=== PATIENT | female | born 1990 | race Caucasian/White ===

== ENCOUNTER 2019-06-16 10:06 | Outpatient (CLI) | payer BC, SELFPAY ==
[2019-06-16 11:26] LABS: Hematocrit 37.2 % (37.0-47.0)
[2019-06-16 11:40] LABS: Glucose 1 Hour PP 50gm Dose 119 mg/dL
[2019-06-16 12:20] LABS: Vitamin D 25 Hydroxy 48.6 ng/mL
[2019-06-16 12:21] LABS: HIV 1/2 Ab P24 Ag Result Negative (Negative)
== END 2019-06-16 10:07 | disposition home or self-care (01) ==
PROVIDERS: Visit Provider Obstetrics & Gynecology Gynecology
DX: Z34.03 Encounter for supervision of normal first pregnancy, third trimester (principal)
CPT/HCPCS: 36415; 82306; 82947; 85014; 85018; 86703; G0432

== ENCOUNTER 2025-01-02 15:21 | Outpatient (CLI) | payer OTHER, SELFPAY ==
--- OUTSIDE RECORDS SUMMARY | 2025-01-02 15:23 | XMS_ITS | Encounter Summary ---
Author Organization [facility] Address [address] [place] [address] Care Team Providers Care Glove Cutter Name Role Phone Ivy Jacobson DO Primary Care Provider [phone] Encounter Details Date Type Department Care Team (Late st Contact Info) Description 02/22/2022 MyCCyPhy Workst Message Enc [facility] Family Medicine - [place] [address], [address] [place] [phone] Ivy Jacobson DO [address] [place] [address] Topamax Social History Tobacco Use Types Packs/Day Years Used Date Smoking Tobacco: Never Smokeless Tobacco: Never Alcohol Use Standard Drinks/Week Comments Not Currently 0 (1 standard drink = 0.6 oz pur e alcohol) PHQ-2 Answer Date Recorded PHQ-2 Score - If the patient scores above 3, please move on to questions 3-9 0 01/27/2022 Comments No Sex and Gender Information Value Date Recorded Sex Assigned at Not on file Legal Sex Female 8:23 AM CDT Gender Identity Not on file Sexual Orientation Not on file COVID-19 Exposure Response Date Recorded In the last 10 days, have yo u been in contact with someone who was confirmed or suspected to have Coronavirus/COVID-19? No / Unsure 02/22/2022 11:36 AM CDT documented as of this encounter Functional Status * RETIRED Are you deaf or do you have serious difficulty hearing Answer Date of Assessment Author Status No 09/11/2019 10:36 PM CDT Acti ve * RETIRED Are you blind or do you have serious difficulty seeing, even when wearing glasses? Answer Date of Assessment Author Status No 09/11/2019 10:36 PM CDT Acti ve * Do you have serious difficulty walking or climbing stairs? Answer Date of Assessment Author Status No 09/11/2019 10:36 PM GAMAT Jacque Peralta RN Active * Do you have difficulty dressing or bathing? Answer Date of Assessment Author Status No 09/11/2019 10:36 PM CDT Jacque Peralta RN Active * Because of a physical, mental, or emotional condition, do you have difficulty doing errands alone such as visiting a doctor's office or shopping? Answer Date of Assessment Author Status No 09/11/2019 10:36 PM GAMAT Jacque Peralta RN Active documented as of this encounter Mental Status * Because of a physical, mental, or emotional condition, do you have serious difficulty concentrating, remembering, or making decisions? Answer Entry Date Author Status No 09/11/2019 10:36 PM CDT Jacque Peralta RN Active documented in this encounter Plan of Treatment Not on file documented as of this encounter Visit Diagnoses Not on filedocumented in this encounter Additional Health Concerns Infection Onset Date Last Indicated Resolved Time COVID-19 Rule Out 03/31/2023 03/31/2023 03/31/2023 10:54 AM CDT COVID-19 Rule Out 03/31/2023 03/31/2023 04/01/2023 3:17 PM CDT COVID-19 Rule Out 05/03/2023 05/03/2023 05/03/2023 1:07 PM BROADCAST OPERATIONS DIRECTOR COVID-19 Rule Out 05/03/2023 05/03/2023 05/04/2023 10:50 PM BROADCAST OPERATIONS DIRECTOR COVID-19 Rule Out 06/02/2023 06/02/2023 06/02/2023 12:07 PM BROADCAST OPERATIONS DIRECTOR COVID-19 Confirmed 06/02/2023 06/02/2023 12:33 AM BROADCAST OPERATIONS DIRECTOR Assessment Noted Time PHQ-9 Depression Total Score: 13 021 2:48 PM CDT documented as of this encounter Care Teams Glove Cutter Relationship Specialty Start Date End Date Kavon, Ivy, DO [address] [place] [address] [id number] PCP - General FAMILY PRACTICE 04/22/20 documented as of this encounter
--- OUTSIDE RECORDS SUMMARY | 2025-01-02 15:23 | XMS_ITS | Clinical Summary ---
Author Organization [facility] Address [address] [place] [address] Care Team Providers Care Cleaning Manager Name Role Phone Ivy Jacobson DO Primary Care Provider [phone] Allergies No known active allergies Medications escitalopram (LEXAPRO) 20 MG tabletIndication s:MARCIAL (generalized anxiety disorder) Take 1 tablet (20 mg total) by mouth daily. 90 tablet 1 3 Active buPROPion XL (WELLBUTRIN XL) 300 MG 24 hr tabletIndication s:MARCIAL (generalized anxiety disorder) Take 1 tablet (300 mg total) by mouth daily. 90 tablet 1 3 Active rizatriptan (MAXALT) 10 MG tabletIndication s:Migraine with aura and without status migrainosus, not intractable Dissolvable prefers one tablet every 12 hours 30 tablet 2 3 Active Active Problems Problem Noted Date Diagnosed Date Stress at work 01/08/2023 Nausea and vomiting in ([facility]) 08/27 uterine contractions in third trimester, antepartum ([facility]) 08/27/2021 Overview (06/21/2022): 08/27/2021 (Maximiliano): Differential Diagnosis or Management Options: at 28w2d here for nausea/vomiting and contractions PLAN: Discussed case with Dr Lopez. FFN neg, but with persistent contractions and early gestational age, will admit for observation. She will call RN with orders ED Course as of 08/27/21211 Time: 08/27 205 Comment: FFN neg, No change in cervical exam, but patient still very nauseated, procardia hasnt helped contractions and 800cc IVF has not helped either. UA suggestive of dehydration, and CMP wnl. By: Inna Viera MD Time: 08/27 210 Comment: Discussed case with Dr Lopez. Will admit, continue IVF and she will call with further orders. By: Inna Viera MD 08/27/2021, 1930 (SK): The patient was started on magnesium sulfate, and started on nifedipine 10 mg p.o. q.6 hours. Patient states she has only felt 3 obvious contractions throughout the day FHT AGA Int os 1? (mucus plug)/long/high - stable Second dose of betamethasone due at 03:00 Discontinue magnesium sulfate and IV fluids Continue nifedipine 10 mg p.o. q.6 hours If stable overnight, can discharge home tomorrow on nifedipine 08/28/2021, (BD): ctxs have resolved - reports none overnight and none detected on TOCO this AM Cervix has been unchanged since admission - 07/02/-3 S/p betamethasone S/p mag On nifedipine 10 mg p.o. q.6 hours - plan to continue at discharge Patient main concern in upper back and chest muscle aches from chronic cough s/p COVID - managed well inpatient with flexuril - will plan to also continue PRN on discharge with referral to chiropractic and message therapy Plan for home this AM with strict PTL precautions COVID-19 virus infection 07/02/2021 History of COVID-19 04/13/2021 Overview (06/21/2022): 06/01/2020 History of depression 04/13/2021 Epigastric pain 07/25/2020 MARCIAL (generalized anxiety disorder) 04/22/2020 Migraine with aura and witho ut status migrainosus, not intractable 04/22/2020 Resolved Problems Problem Noted Date Diagnosed Date Resolved Date Right upper quadrant abdominal pain 07/25/2020 07/01/2021 Weight gain 04/22/2020 12/02/2021 Post depression 02/25/202012/02 ([facility]) 09/11/2019 09/15/19 20 Immunizations Immunization Administration Dates Next Due Fluzone 6 Months+ Quad (0.5 mL Prefilled Syringe ) 04/22/2020 Tdap (Generic) 08/26/2021 Social History Tobacco Use Types Packs/Day Years Used Date Smoking Tobacco: Never Passive Smoke Exposure: Never Smokeless Tobacco: Never Tobacco Cessation:Counseling Given: No Alcohol Use Standard Drinks/Week Comments Yes 0 (1 standard drink = 0.6 oz pur e alcohol) OCC PHQ-2 Answer Date Recorded Patient Health Questionnaire-2 Score 2 07/22/2022 Comments No Sex and Gender Information Value Date Recorded Sex Assigned at Not on file Legal Sex Female 8:23 AM CDT Gender Identity Not on file Sexual Orientation Not on file Last Filed Vital Signs Vital Sign Reading Time Taken Comments Blood Pressure 112/80 06/02/2023 11:43 AM DOUGHNUT GLAZIER Pulse 68 06/02/2023 11:43 AM DOUGHNUT GLAZIER Temperature 36.4 C (97.5 F) 06/02/2023 11:43 AM DOUGHNUT GLAZIER Respiratory Rate 16 01/19/2023 9:03 AM CDT Oxygen Saturation 98% 06/02/2023 11:43 AM DOUGHNUT GLAZIER Inhaled Oxygen Concentration - - Weight 89.8 kg (198 lb) 06/02/2023 11:43 AM DOUGHNUT GLAZIER Height 167.6 cm (5' 6) 01/19/2023 9:03 AM CDT Body Mass Index 31.96 01/19/2023 9:03 AM CDT Plan of Treatment Health Maintenance Due Date Last Done Comments Annual Physical 1993 Hepatitis C 02/04/2008 Hepatitis B Vaccines (1 of 3 - 19+ 3-dose series) 2009 HPV Vaccines (1 - 3-dose SCD M series) 2017 COVID-19 Vaccine (2023-2 5 season) 2024 Cervical Cancer Screening Pa p Smear (Age 30 to 64) Every 3 Years 04/13/2024 04/13/2021, 04/13/2021 PHQ-2 (Physician Grants) 06/13/2024 Cervical Cancer Screening Pa p with HPV Testing (Age 30 to 64) Every 5 Years 04/13/2026 04/13/2021, 04/13/2021 Cervical Cancer Screening wi th HPV 04/13/2026 DTaP, Tdap and Td Vaccines ( 2 - Td or Tdap) 08/27/2031 08/26/2021 Meningococcal B Vaccine Aged Out No l onger eligible based on patient's age to complete this topic Meningococcal Vaccine Aged Out No glenny keshawn eligible based on patient's age to complete this topic Pneumococcal Vaccine: Pediatrics (0 to 5 Years) and At-Risk Patients (6 to 49 Years) Aged Out No longer eligible b ased on patient's age to complete this topic RSV Immunizations Under 20 Months Aged Out No longer eligible b ased on patient's age to complete this topic Procedures Procedure Name Priority Date/Time Associated Diagnosis Comments OUTSIDE CYTOPATH CERV/VAG IN TERPRET (PAP) Routine 04/13/2021 from Last 3 Months or Most Recently Relevant to Health Maintenance Results * PAP SMEAR WITH HPV (04/13/2021) 04/13/2021 us Documents Scanned SCANNING Final Result [facility] from Last 3 Months or Most Recently Relevant to Health Maintenance Insurance [facility] Advance Directives * Full Code (Latest Code Status on File) Date Activated Date Inactivated Comments 09/12/2019 11:01 PM 09/15/2019 4:22 PM * Full Code Date Activated Date Inactivated Comments 09/11/2019 9:50 PM 09/12/2019 9:26 PM Care Teams Cleaning Manager Relationship Specialty Start Date End Date Ivy Jacobson DO [address] [place] [id number] PCP - General FAMILY PRACTICE 04/22/20
--- OUTSIDE RECORDS SUMMARY | 2025-01-02 15:23 | XMS_ITS | Encounter Summary ---
Author Organization [facility] Address [address] [place] [address] Care Team Providers Care Cloth Folder Machine Name Role Phone Ivy Jacobson DO Primary Care Provider [phone] Encounter Details Date Type Department Care Team (Late st Contact Info) Description 05/19/2023 Incentivyzet Message Enc [facility] Family Medicine - [place] [address], [address] [place] [phone] Ivy Jacobson DO [address] [place], [place] [id number] Bupropion Social History Tobacco Use Types Packs/Day Years Used Date Smoking Tobacco: Never Passive Smoke Exposure: Never Smokeless Tobacco: Never Alcohol Use Standard Drinks/Week Comments Yes 0 (1 standard drink = 0.6 oz pur e alcohol) OCC PHQ-2 Answer Date Recorded Patient Health Questionnaire-2 Score 2 07/22/2022 Comments No Sex and Gender Information Value Date Recorded Sex Assigned at Not on file Legal Sex Female 8:23 AM CDT Gender Identity Not on file Sexual Orientation Not on file documented as of this encounter Functional Status [...] Assessment Author Status No 09/11/2019 10:36 PM Jacque Torres RN Active * Do you have difficulty dressing or bathing? Answer Date of Assessment Author Status No 09/11/2019 10:36 PM Jacque Torres RN Active * Because of a physical, mental, or emotional condition, do you have difficulty doing errands alone such as visiting a doctor's office or shopping? Answer Date of Assessment Author Status No 09/11/2019 10:36 PM Jacque Torres RN Active documented as of this encounter Mental Status * Because of a physical, mental, or emotional condition, do you have serious difficulty concentrating, remembering, or making decisions? Answer Entry Date Author Status No 09/11/2019 10:36 PM Jacque Torres RN Active documented in this encounter Plan of Treatment Not on file documented as of this encounter Visit Diagnoses Not on filedocumented in this encounter Additional Health Concerns Infection Onset Date Last Indicated Resolved Time COVID-19 Rule Out 06/02/2023 06/02/2023 06/02/2023 12:07 PM DRUM WORKER COVID-19 Confirmed 06/02/2023 06/02/2023 12:33 AM DRUM WORKER Assessment Noted Time PHQ-9 Depression Total Score: 13 023 2:35 PM DRUM WORKER documented as of this encounter Care Teams Cloth Folder Machine Relationship Specialty [place] [address] [place] [id number] PCP - General FAMILY PRACTICE 04/22/20 documented as of this encounter
--- OUTSIDE RECORDS SUMMARY | 2025-01-02 15:24 | XMS_ITS | Clinical Summary ---
Author Organization [facility] Address [address] [place] [address] Care Team Providers Care Imaging Nurse Name Role Phone Rashmi Bajwa MD Unavailable [phone] Source Comments [facility],non-owned Affiliates and Associated Physician Practices is amultiple site organization consisting of ambulatory clinics and hospital sitesin [place], [place], [place] and [place]. This disclosure is being madepursuant to the Care Everywhere program and may not contain all information available regarding this patient. Last updated 18.[facility] Allergies No known active allergies Medications * Be aware that medications may not be up to date on this document. Alwaysverify current medications with the patient. promethazine (PHENERGAN) 25 MG tablet Take 1 Tab by mouth every 6 hours as needed for Nausea/Vomi ting. 10 Tab 0 06/02/2014 Active ondansetron (ZOFRAN) 4 MG tablet Take 1 Tab by mouth every 4 hours as needed for Nausea/Vomi ting. 10 Tab 0 06/02/2014 Active Social History Tobacco Use Types Packs/Day Years Used Date Smoking Tobacco: Never Alcohol Use Standard Drinks/Week Comments Yes 0 (1 standard drink = 0.6 oz pur e alcohol) social Comments Unknown Sex and Gender Information Value Date Recorded Sex Assigned at Not on file Legal Sex Female 5:35 AM CIRCULATION SUPERVISOR Gender Identity Not on file Sexual Orientation Not on file Last Filed Vital Signs Vital Sign Reading Time Taken Comments Blood Pressure 109/68 06/02/2014 8:10 PM CIRCULATION SUPERVISOR Pulse 92 06/02/2014 8:10 PM CIRCULATION SUPERVISOR Temperature 37.2 C (99 F) 06/02/2014 2:14 PM CIRCULATION SUPERVISOR Respiratory Rate 16 06/02/2014 8:10 PM CIRCULATION SUPERVISOR Oxygen Saturation 100% 06/02/2014 8:10 PM CIRCULATION SUPERVISOR Inhaled Oxygen Concentration - - Weight 63.5 kg (140 lb) 06/02/2014 2:12 PM CIRCULATION SUPERVISOR Height 167.6 cm (5' 6) 06/02/2014 2:12 PM CIRCULATION SUPERVISOR Body Mass Index 22.6 06/02/2014 2:12 PM CIRCULATION SUPERVISOR Plan of Treatment Health Maintenance Due Date Last Done Comments HIV SCREENING 2005 HEPATITIS C SCREENING 01/30/2008 DTAP/TDAP/TD VACCINES (1 - Tdap) 2009 HEPATITIS B VACCINE (1 of 3 - 19+ 3-dose series) 2009 HPV VACCINE (1 - 3-dose SCDM series) 2017 COVID-19 VACCINE (1 - 2023-2 5 season) 2024 DEPRESSION SCREENING 06/13/2024 INFLUENZA VACCINE (#1) 2025 ZOSTER VACCINE (1 of 2) 02/04/2040 HIB VACCINE Aged Out No longer eligi ble based on patient's age to complete this topic MENINGOCOCCAL (Group B) VACC INE SHARED DECISION-MAKING Aged Out No longer eligibl e based on patient's age to complete this topic MENINGOCOCCAL GROUPS A/C/Y/W VACCINE Aged Out No longer eligible b ased on patient's age to complete this topic PNEUMOCOCCAL VACCINE Aged Out No long er eligible based on patient's age to complete this topic [place] [address] [place] [address] CARE [place] [address] [place] [address] Care Teams Imaging Nurse Relationship Specialty Start Date End Date Rashmi Bajwa MD Orthopedic Surgery 08/08/12
--- OUTSIDE RECORDS SUMMARY | 2025-01-02 15:24 | XMS_ITS | Clinical Summary ---
Author Organization [facility] Address [address] [place] [address] Care Team Providers Care Saw Offbearer Name Role Phone Ivy Jacobson DO Primary Care Provider [phone] Og Calderon MD Unavailable [phone] Allergies Active Allergy Reactions Criticality Noted Date Comments Sulfa (Sulfonamide Antibiotics) Stomach upset Low 05/28/2014 Stomach/GI Upset Medications escitalopram (LEXAPRO) 20 mg tabletIndicatio ns:Post depression TAKE 1 TABLET(20 MG) BY MOUTH DAILY 30 tablet 1 2 Active buPROPion XL (WELLBUTRIN XL) 300 mg 24 hr tablet Take 1 tablet (300 mg total) by mouth daily Active rizatriptan (MAXALT) 10 mg tablet Take 1 tablet (10 mg total) by mouth daily as needed 3 Active triamcinolone (KENALOG) 0.1 % ointment APPLY SPARINGLY TOPICALLY TO THE AFFECTED AREA TWICE DAILY 4 Active acetaminophen (TylenoL) 325 mg tablet Take 2 tablets (650 mg total) by mouth every 6 (six) hours as needed for pain 30 tablet 5 Active ibuprofen (ADVIL,MOTRIN) 600 mg tablet Take 1 tablet (600 mg total) by mouth every 6 (six) hours as needed for pain 30 tablet 5 Active Active Problems Problem Noted Date Diagnosed Date Abnormal uterine bleeding 05/31/2024 Endometrial polyp 05/30/2024 Menorrhagia with regular cycle 05/30/2024 Abnormal uterine bleeding (AUB) 04/11/2024 Anxiety and depression 04/13/2021 History of depression 04/13/2021 History of section 04/13/2021 Overview (11/08/2021): G1 progressed to complete dilation, pushed for 3 hours, failed vacuum. Previously counseled by Dr. Gonzalez (07/14) Planning repeat CS, scheduled for 11/05 at 39wks with tubal ligation 11/05/2021 (SK): The general risks of surgery were reviewed, including infection, hemorrhage requiring blood transfusion or additional emergency procedures, injury to surrounding organs, and complications related to anesthesia (which will be reviewed with the patient by the anesthesia service). The patient had the opportunity to ask questions and have them answered by me. To the best of my knowledge the patient expressed understanding and consented to undergo repeat low-transverse section. History of COVID-19 04/13/2021 Overview (04/13/2021): 06/01/2020 Resolved Problems Problem Noted Date Diagnosed Date Resolved Date S/P repeat low transverse 11/05/2021 04/11/2024 Overview (11/08/2021): 11/06/21, POD#1 (SO): O+, rubella immune Hgb 9.8 VSS Is ambulating, and voiding without difficulty Baby is NICU Is pumping breasts until baby can go to breast Continue routine PP care 11/07/2021 (SK): Baby remains in NICU, but plan is to come out to room today and hopefully discharge tomorrow Pumping, working on latch, and supplementing with formula Ambulating, voiding, tolerating regular diet, pain controlled VSS WNL Exam deferred due to patient holding baby in NICU and has binder in place Continue routine post care 11/08/2021 (SK): Baby is in the room with mother, and good for discharge today Continues to work on Ambulating, voiding, tolerating regular diet, pain controlled Single mildly elevated blood pressure Normal exam Stable for discharge Routine discharge precautions Follow-up 1 week postop for incision and blood pressure check Admission for sterilization 11/05/2021 11/08/2021 Overview (11/08/2021): 11/05/2021 (EMMA): The patient previously expressed desire for permanent sterilization, and consents were signed in the office. The patient reiterates that desire today. The options for tubal sterilization at the time of section were reviewed, including partial or total salpingectomy. The patient was informed that there is a roughly 10-15% reduction in lifetime risk of ovarian cancer with with any tubal sterilization procedure, due to cutting off the pathway for external irritants to enter the pelvis, and that the reduction in risk is even greater with total salpingectomy, due to the fact that a portion of what is diagnosed as ovarian cancer actually starts in the fallopian tube. The procedure was described. Failure rates were reviewed. The possibility of regret in the future was addressed. It was pointed out that while reversal procedures are available following partial salpingectomy, sterilization procedures are meant to be permanent. The patient had a chance to ask questions and have them answered by me. To the best my knowledge the patient expressed understanding and consents to undergo bilateral salpingectomy for sterilization. uterine contractions in third trimester, antepartum 08/27/2021 04/11/2024 Overview (08/28/2021): 08/27/2021 (Maximiliano): Differential Diagnosis or Management Options: at 28w2d here for nausea/vomiting and contractions PLAN: Discussed case with Dr Lopez. FFN neg, but with persistent contractions and early gestational age, will admit for observation. She will call RN with orders ED Course as of 08/27/21211 Time: 08/27 020 Comment: FFN neg, No change in cervical [...] home this AM with strict PTL precautions Nausea and vomiting in 08/27/2021 04/11/2024 COVID-19 07/02/2021 04/11/2024 Encounter for supervision of normal , antepartum 04/13/2021 11/08/2021 Overview (11/08/2021): Supervision of Datinwk US Labs: O+/I/-/-,NR Genetics:Panorama - LR Anatomy: Complete, EFW 71% nml GCT: 08/26 Tdap: 08/26 GBS: neg 3rd Trimester CBC/HIV/RPR: completed Delivery Planning: Repeat CS scheduled for 39wks on 11/05 Pt has decided to have a tubal ligation and considering IUD for menstrual control . Consent form signed Anxiety/depression Stable on Lexapro and atarax PRN COVID 19 Positive 07/02 SP ASA Obesity/LGA Patient counseled on well balanced diet and regular activity Advised of goal weight gain 11-20lbs, (33lbs gain todate) Early Glucose screening - passed 98 EFW (34w6d) 82.5% AC 97% Post depression 02/25/202004/13 Immunizations Immunization Administration Dates Next Due Tdap 08/26/2021 Surgical History Surgery Date Site/Laterality Comments SECTION, LOW TRANSVERSE 09/12/2019 SINUS SURGERY ESOPHAGOGASTRODUODENOSCOPY SKIN CANCER EXCISION CYST REMOVAL 06/13/2010 - 06/12/2011 Medical History Medical History Date Comments No known health problems Depression Anxiety Headache migraines Gall bladder disease possible?? having some GI sx/had some testing/no surgery indicated Family History Medical History Relation Name Comments No Known Problems Father Hypertension Mother Breast cancer Neg Hx Ovarian cancer Neg Hx Uterine cancer Neg Hx Relation Name Status Comments Father Alive Mother Alive Social History Tobacco Use Types Packs/Day Years Used Date Smoking Tobacco: Never Alcohol Use Standard Drinks/Week Comments Yes 0 (1 standard drink = 0.6 oz pur e alcohol) AUDIT-C Answer Date Recorded Q1: How often do you have a drink containing alc ohol? 2-4 times a month 06/18/2024 Q2: How many drinks containi ng alcohol do you have on a typical day when you are drinking? 1 or 2 06/18/2024 Q3: How often do you have si x or more drinks on one occasion? Never 06/18/2024 [place] Depression Scale Answer Date Recorded [place] Depression Scale Total 3 12/22/2021 The thought of harming myself has occurred to me . Never 12/22/2021 Personal Safety Answer Date Recorded Have you ever been in or are you currently in a harmful physical or emotional relationship or is someone making you feel afraid or unsafe? Denies 06/18/2024 Comments No Sex and Gender Information Value Date Recorded Sex Assigned at Not on file Legal Sex Female 8:57 PM FOLDER OPERATOR Gender Identity Female 06/08/2024 6:31 PM FOLDER OPERATOR Sexual Orientation Not on file Obstetrics History Para Term AB IAB SAB Ectopic Multiple Livin g Live Births 3 2 2 1 1 0 2 2 Date Outcome GA Total Labor Labor/2nd/3rd Weight Sex Type Anes PTL Dianelys A1 A5 Name Clin 2019 Term 39w 2d 10h 37m 6h 20m/4h 15m/0h 02m 3.402 kg (7 lb 8 oz) F CS-LT ranv Epidur al N Livin g 8 9 PANKAJ R,GIRL ALF Reece en Rhoda rangel Nemesio in Complications:Failure to Pro sloan in Second Stage, Intolerance Delivery Location:[facility] SAB 2021 Term 39w 1d 0h 03m 0h 03m 3.81 kg (8 lb 6.4 oz) M CS-LT ranv Spinal N Livin g 6 7 HORTENCIA DE LA GARZA, Adam Stringer MD Complications:None Delivery Location:[facility] ([facility] L AND D PROCEDURE) Last Filed Vital Signs Vital Sign Reading Time Taken Comments Blood Pressure 130/84 06/18/2024 11:35 AM FOLDER OPERATOR Pulse 88 06/18/2024 11:35 AM FOLDER OPERATOR Temperature 37 C (98.6 F) 06/18/2024 11:05 AM FOLDER OPERATOR Respiratory Rate 16 06/18/2024 11:35 AM FOLDER OPERATOR Oxygen Saturation 98% 06/18/2024 11:35 AM FOLDER OPERATOR Inhaled Oxygen Concentration - - Weight 90 kg (198 lb 8 oz) 06/18/2024 7:05 AM CS T Height 167.6 cm (5' 6) 06/18/2024 7:05 AM FOLDER OPERATOR Body Mass Index 32.04 06/18/2024 7:05 AM FOLDER OPERATOR Plan of Treatment Health Maintenance Due Date Last Done Comments Varicella Vaccines (1 of 2 - 13+ 2-dose series) 2003 Hepatitis B Screening 02/04/2008 Cervical Cancer Screening 04/13/2022 04/13/2021 Depression Screening 12/22/2022 12/22/2021 Influenza Vaccine (#1) 2025 , 05/02/2013 Regular Well Visit/Exam 18-64 04/11/2025 04/11/2024 DTaP/Tdap/Td Vaccine (4 - Td or Tdap) 08/27/2031 08/26/2021, 06/13/2008, 06/13/2004 Hepatitis C Screening Completed 03/26/2021 HPV Vaccines Aged Out No longer eligi ble based on patient's age to complete this topic Pneumococcal vaccine <65 Aged Out No longer eligible based on patient's age to complete this topic Procedures Procedure Name Priority Date/Time Associated Diagnosis Comments THINPREP PAP WITH HPV Routine 04/13/2021 11:01 AM CDT HEPATITIS C ANTIBODY Routine 03/26/2021 11:02 AM CDT Positive blood test from Last 3 Months or Most Recently Relevant to Health Maintenance Results * ThinPrep Pap with HPV (04/13/2021 11:01 AM CDT) Pap test 04/13/2021 11:0 1 AM CDT 04/14/2021 11:01 AM CDT Narrative 04/17/2021 10:16 AM CDT [facility] Department of Pathology [address] [place] [address] Final Report with Addendum Note to Patients: This report may contain a detailed description of human tissue sent by a health care provider to the laboratory for pathologic evaluation. The content of this report is essential for diagnosis and may provide important critical findings. This information may be unfamiliar to patients to review without a medical professional present. It is advised that the patient review this report in the presence of a health care provider who can answer questions and explain the details. Patient Name: ALF CHAUHAN Address: [address] [place] [address] Gender: F : 1990 (Age: 31) Service: Laboratory Location: [facility] #: [id number] Patient Type: [facility] SPECIMEN Taken: 04/13/2021 Received: 04/14/2021 Accessioned:: 04/15/2021 Reported: 04/17/2021 Physician(s): Dr. Nomi Raymond M.D. [facility] Diagnosis: Source of Specimen: Imaged Thinprep Pap Test plus HPV - Analytical Laboratory Technician Cytologic Material Specimen Adequacy: - Satisfactory for evaluation; endocervical/transformation zone component present General Category: - Negative for intraepithelial lesion or malignancy Interpretation/Results: - Numerous inflammatory cells present NUBIA Meeks(ASCP) Report Electronically Reviewed and Signed Out By TONYA MeeksASCP) 04/17/2021 10:16:02 Addenda: HPV Test Interpretation NEGATIVE for types 16, 18, 31, 33, 35, 39, 45, 51, 52, 56, 58, 59, 66 and 68. Test performed utilizing Gen-Probe Aptima assay. NUBIA Madrigal(ASCP) Report Electronically Reviewed and Signed Out By TONYA MadrigalASCP) 04/15/2021 15:12:32 Specimen(s) Received: A: Imaged Thinprep Pap Test plus HPV - Analytical Laboratory Technician Cytologic Material Clinical History: The Pap test is a screening test used to aid in the detection of cervical cancer and its precursors. It should not be the sole means by which malignant and premalignant lesions are diagnosed. Both false negative and false positive results may occur. It also has poor sensitivity for the detection of endometrial lesions and should not be used to evaluate suspected endometrial abnormalities. For these reasons it is most important to obtain Pap tests at regular intervals. The performance characteristics of some immunohistochemical stains, fluorescence in-situ hybridization tests and immunophenotyping by flow cytometry cited in this report (if any) were determined by the Surgical Pathology Department at [facility] as part of an ongoing advanced quality engineer program and in compliance with federally mandated regulations drawn from the Clinical Laboratory Improvement Act of 1988 (CLIA '88). Some of these tests rely on the use of analyte specific reagents and are subject to specific labeling requirements by the US Food and Drug Administration. Such diagnostic tests may only be performed in a facility that is certified by the Department of Health and Human Services as a high complexity laboratory under CLIA '88. The FDA has determined that such clearance or approval is not necessary. This test is used for clinical purposes. It should not be regarded as investigational or for research. Nevertheless, federal rules concerning the medical use of analyte specific reagents require that the following disclaimer be attached to the report: This test was developed and its performance characteristics determined by the Surgical Pathology Department [facility]. It has not been cleared or approved by the U. S. Food and Drug Administration. us Nomi Raymond MD LAB CYTOLOGY ORDERABLES Fi nal Result * Hepatitis C antibody (03/26/2021 11:02 AM CDT) Hep C Ab Nonreactive Nonreactive FRANK POWELL Comment: Interpretive Data Nonreactive: Antibodies to HCV not detected. Does NOT exclude the possibility of recent exposure to HCV. Equivocal: Equivocal for HCV antibodies. Supplemental molecular testing will be automatically performed to determine infection status in accordance with current CDC screening recommendations. Reactive: Positive for HCV antibodies. This may represent current or past HCV infection. Supplemental molecular testing will be automatically performed to determine current infection status in accordance with current CDC screening recommendations. Interpretive data was last revised on 2019. Blood 03/26/2021 11:0 2 AM CDT 03/26/2021 12:33 PM CDT Adam Gonzalez MD LAB MICROBIOLOGY - GENERAL ORDERABLES Final Result Performing Organization Address City/State/[facility] Co de Phone Number FRANK [address] [facility] [place] [address] from Last 3 Months or Most Recently Relevant to Health Maintenance Insurance CHOICE PLUS [facility] CHOICE PLUS [facility] CHOICE PLUS Advance Directives For more information, please contact: [phone] * Full Code (Latest Code Status on File) Date Activated Date Inactivated Comments 11/05/2021 9:07 AM 11/08/2021 10:01 PM * Full Code Date Activated Date Inactivated Comments 11/05/2021 5:42 AM 11/05/2021 9:07 AM Full CPR in case of cardiopulmonary arrest * Full Code Date Activated Date Inactivated Comments 08/27/2021 2:31 AM 08/28/2021 2:21 PM Full CPR in case of cardiopulmonary arrest Care Teams Saw Offbearer Relationship Specialty Start Date End Date Ivy Jacobson DO [address] [facility] [address] [place] [address] PCP - General Family Medicine 11/05/21 Og Calderon MD [address] [phone] Consulting Physician Obstetrics and Gynecology 06/18/24
--- OUTSIDE RECORDS SUMMARY | 2025-01-02 15:24 | XMS_ITS | Encounter Summary ---
Author Organization [facility] Address [address] [place] [address] Care Team Providers Care Parts Room Assistant Name Role Phone Ivy Jacobson DO Primary Care Provider [phone] Encounter Details Date Type Department Care Team (Late st Contact Info) Description 05/02/2023 Innovative Biosensorst Message Enc [facility] Family Medicine - [place] [address] [facility], [address] [place] [phone] Ivy Jacobson DO [address] [place], [place] [phone] Sick Social History Tobacco Use Types Packs/Day Years [...] Last Indicated Resolved Time COVID-19 Rule Out 05/03/2023 05/03/2023 05/03/2023 1:07 PM MEMBER CERTIFICATION MANAGER COVID-19 Rule Out 05/03/2023 05/03/2023 05/04/2023 10:50 PM MEMBER CERTIFICATION MANAGER COVID-19 Rule Out 06/02/2023 06/02/2023 06/02/2023 12:07 PM MEMBER CERTIFICATION MANAGER COVID-19 Confirmed 06/02/2023 06/02/2023 12:33 AM MEMBER CERTIFICATION MANAGER Assessment Noted Time PHQ-9 Depression Total Score: 13 023 2:35 PM MEMBER CERTIFICATION MANAGER documented as of this encounter Care Teams Parts Room Assistant Relationship Specialty Start Date End Date Ivy Jacobson DO [address] [place] [address] PCP - General FAMILY PRACTICE 04/22/20 documented as of this encounter
--- OUTSIDE RECORDS SUMMARY | 2025-01-02 15:24 | XMS_ITS | Encounter Summary ---
Author Organization [facility] Address [address] [place] [address] Care Team Providers Care Wheel Shop Supervisor Name Role Phone Ivy Jacobson DO Primary Care Provider [phone] Encounter Details Date Type Department Care Team (Late st Contact Info) Description 01/13/2023 [email or web address] Message Enc [facility] Family Medicine - [place] [address] [facility], [address] [place] [phone] Ivy Jacobson DO [address] [place], [place] [phone] Bupropion Social History Tobacco Use Types Packs/Day [...] Rule Out 05/03/2023 05/03/2023 05/03/2023 1:07 PM SKIN CARE INSTRUCTOR COVID-19 Rule Out 05/03/2023 05/03/2023 05/04/2023 10:50 PM SKIN CARE INSTRUCTOR COVID-19 Rule Out 06/02/2023 06/02/2023 06/02/2023 12:07 PM SKIN CARE INSTRUCTOR COVID-19 Confirmed 06/02/2023 06/02/2023 12:33 AM SKIN CARE INSTRUCTOR Assessment Noted Time PHQ-9 Depression Total Score: 13 023 2:35 PM SKIN CARE INSTRUCTOR documented as of this encounter Care Teams Wheel Shop Supervisor Relationship Specialty Start Date End Date Ivy Jacobson DO [address] [place] [id number] PCP - General FAMILY PRACTICE 04/22/20 documented as of this encounter
--- OUTSIDE RECORDS SUMMARY | 2025-01-02 15:24 | XMS_ITS | Encounter Summary ---
Author Organization [facility] Address [address] [place] [address] Care Team Providers Care Ceo & Co Founder Name Role Phone Ivy Jacobson Primary Care Provider [phone] Encounter Details Date Type Department Care Team (Late st Contact Info) Description 12/08/2022 [facility] Message Enc [facility] Family Medicine - [place] [address] [facility], [address] [place] [phone] [place] MD, [facility] Provider [employer] Social History Tobacco Use Types Packs/Day Years [...] PM CDT Jacque Peralta RN Active * Do you [...] Rule Out 05/03/2023 05/03/2023 05/03/2023 1:07 PM INDUCTION HEATING EQUIPMENT SETTER COVID-19 Rule Out 05/03/2023 05/03/2023 05/04/2023 10:50 PM INDUCTION HEATING EQUIPMENT SETTER COVID-19 Rule Out 06/02/2023 06/02/2023 06/02/2023 12:07 PM INDUCTION HEATING EQUIPMENT SETTER COVID-19 Confirmed 06/02/2023 06/02/2023 12:33 AM INDUCTION HEATING EQUIPMENT SETTER Assessment Noted Time PHQ-9 Depression Total Score: 13 023 2:35 PM INDUCTION HEATING EQUIPMENT SETTER documented as of this encounter Care Teams Ceo & Co Founder Relationship Specialty Start Date End Date Ivy Jacobson DO [address] [place] [address] PCP - General FAMILY PRACTICE 04/22/20 documented as of this encounter
--- OUTSIDE RECORDS SUMMARY | 2025-01-02 15:24 | XMS_ITS | Encounter Summary ---
Author Organization [facility] Address [address] [place] [address] Care Team Providers Care Prison Guard Supervisor Name Role Phone None, Provider Primary Care Provider Ivy Murray DO Primary Care Provider [phone] Encounter Details Date Type Department Care Team (Late st Contact Info) Description 09/24/2019 Hospital Follow-up Call [facility] [place] [address] Cary Bravo RN Social History Tobacco Use Types Packs/Day Years Used Date Smoking Tobacco: Never Smokeless Tobacco: Never Alcohol Use Standard Drinks/Week Comments Not Currently 0 (1 standard drink = 0.6 oz pur e alcohol) Comments No Sex and Gender Information Value Date Recorded Sex Assigned at Not on file Legal Sex Female 8:23 AM CDT Gender Identity Not on file Sexual Orientation Not on file COVID-19 Exposure Response Date Recorded In the last month, have you been in contact with someone who was confirmed or suspected to have Coronavirus / COVID-19? No / Unsure 09/11/2019 9:14 PM CDT documented as of this encounter Functional [...] Last Indicated Resolved Time COVID-19 Rule Out 06/30/2021 06/30/2021 06/30/2021 9:50 AM MARKETING ANALYST COVID-19 Confirmed 06/30/2021 06/30/2021 12:32 AM MARKETING ANALYST COVID-19 Rule Out 12/02/2021 12/02/2021 12/02/2021 2:41 PM CDT COVID-19 Rule Out 12/02/2021 12/02/2021 12/03/2021 2:26 PM CDT COVID-19 Rule Out 01/07/2022 01/07/2022 01/07/2022 9:40 AM CDT COVID-19 Rule Out 03/31/2023 03/31/2023 03/31/2023 10:54 AM CDT COVID-19 Rule Out 03/31/2023 03/31/2023 04/01/2023 3:17 PM CDT COVID-19 Rule Out 05/03/2023 05/03/2023 05/03/2023 1:07 PM MARKETING ANALYST COVID-19 Rule Out 05/03/2023 05/03/2023 05/04/2023 10:50 PM MARKETING ANALYST COVID-19 Rule Out 06/02/2023 06/02/2023 06/02/2023 12:07 PM MARKETING ANALYST COVID-19 Confirmed 06/02/2023 06/02/2023 12:33 AM MARKETING ANALYST documented as of this encounter Care Teams Prison Guard Supervisor Relationship Specialty Start Date End Date None, Provider, PCP - General 08/21/19 04/21/20 Ivy Jacobson DO [address] [place] [address] PCP - General FAMILY PRACTICE 04/22/20 documented as of this encounter
--- OUTSIDE RECORDS SUMMARY | 2025-01-02 15:24 | XMS_ITS | Referral Summary ---
Author Organization [facility] at the Medical Office Building Address [address] [place] [address] Care Team Providers Care Cutter Apprentice Hand Name Role Phone Ivy Jacobson DO Primary Care Provider [phone] Og Calderon MD Unavailable [phone] Allergies Active Allergy Reactions Criticality Noted Date [...] Immunization Administration Dates Next Due Tdap 08/26/2021 Social History Tobacco Use Types Packs/Day [...] more drinks on one occasion? Never 06/18/2024 [place] Depression Scale Answer Date Recorded [place] Depression Scale Total 3 12/22/2021 The thought [...] on file Legal Sex Female 8:57 PM CUSTOMER SOLUTIONS ARCHITECT Gender Identity Female 06/08/2024 6:31 PM CUSTOMER SOLUTIONS ARCHITECT Sexual Orientation Not on file Last Filed Vital Signs Vital Sign Reading Time Taken Comments Blood Pressure 130/84 06/18/2024 11:35 AM CUSTOMER SOLUTIONS ARCHITECT Pulse 88 06/18/2024 11:35 AM CUSTOMER SOLUTIONS ARCHITECT Temperature 37 C (98.6 F) 06/18/2024 11:05 AM CUSTOMER SOLUTIONS ARCHITECT Respiratory Rate 16 06/18/2024 11:35 AM CUSTOMER SOLUTIONS ARCHITECT Oxygen Saturation 98% 06/18/2024 11:35 AM CUSTOMER SOLUTIONS ARCHITECT Inhaled Oxygen Concentration - - Weight 90 kg (198 lb 8 oz) 06/18/2024 7:05 AM CS T Height 167.6 cm (5' 6) 06/18/2024 7:05 AM CUSTOMER SOLUTIONS ARCHITECT Body Mass Index 32.04 06/18/2024 7:05 AM CUSTOMER SOLUTIONS ARCHITECT Plan of Treatment Not on file Procedures Procedure Name Priority Date/Time Associated Diagnosis [...] AM CDT Narrative 04/17/2021 10:16 AM CDT [facility] Department of Pathology [address] [place] [address] Final Report with Addendum Note to Patients: [...] details. Patient Name: ALF CHAUHAN Address: [address] [place] [address] Gender: F : 1990 (Age: 31) Service: Laboratory Location: [facility] : [id number] [facility] #: [id number] Patient Type: [facility] SPECIMEN Taken: 04/13/2021 Received: 04/14/2021 Accessioned:: 04/15/2021 Reported: 04/17/2021 Physician(s): Dr. Nomi Raymond M.D. [facility] Diagnosis: Source of Specimen: Imaged Thinprep Pap Test plus HPV - Fnps Cytologic Material Specimen Adequacy: - Satisfactory for [...] Imaged Thinprep Pap Test plus HPV - Fnps Cytologic Material Clinical History: The Pap test [...] determined by the Surgical Pathology Department at [facility] as part of an ongoing auditor/quality program and in compliance with federally mandated [...] characteristics determined by the Surgical Pathology Department [facility]. It has not been cleared or approved by the U. S. Food and Drug Administration. Nomi Raymond MD LAB CYTOLOGY ORDERABLES Fi [...] 2 AM CDT 03/26/2021 12:33 PM CDT us Adam Gonzalez MD LAB MICROBIOLOGY - GENERAL ORDERABLES Final Result Performing Organization Address City/State/[facility] Co de Phone Number FRANK [phone] [facility] Department [place] [address] from Last 3 Months or Most Recently Relevant to Health Maintenance Insurance [facility] [employer] [employer] HMO/PPO Address: [facility] [address] [place] [address] [facility] [employer] [employer] HMO/PPO Address: [address] [place] [address] [facility] [employer] [facility] HMO/PPO Address: [place] [address] Advance Directives For more information, please contact: [phone] * Full Code (Latest Code Status on File) Date Activated Date Inactivated Comments 11/05/2021 9:07 AM 11/08/2021 10:01 PM * Full Code Date Activated Date Inactivated Comments 11/05/2021 5:42 AM 11/05/2021 9:07 AM Full CPR in case of cardiopulmonary arrest * Full Code Date Activated Date Inactivated Comments 08/27/2021 2:31 AM 08/28/2021 2:21 PM Full CPR in case of cardiopulmonary arrest Care Teams Cutter Apprentice Hand Relationship Specialty Start Date End Date Ivy Jacobson DO [address] [facility] [address] [place] [address] PCP - General Family Medicine 11/05/21 Og Calderon MD [address] [facility] [address] [place] [address] Consulting Physician Obstetrics and Gynecology 06/18/24
--- OUTSIDE RECORDS SUMMARY | 2025-01-02 15:24 | XMS_ITS | Encounter Summary ---
Author Organization [facility] Facility Care Team Providers Care Computer Meteorologist Name Role Phone No, Physician Primary Care Provider [phone] Ivy Jacobson DO Primary Care Provider [phone] Og Calderon MD Unavailable Encounter Details Date Type Department Care Team (Latest Contact Info) Description 12/26/2017 Orders Only [facility] CLINCONV Provider, MD Dre [address] [place] [address] Social History Tobacco Use Types Packs/Day Years Used Date Smoking Tobacco: Never Assessed Comments Unknown Sex and Gender Information Value Date Recorded Sex Assigned at Not on file Legal Sex Female 8:57 PM MORNING NEWS PRODUCER Gender Identity Female 06/08/2024 6:31 PM MORNING NEWS PRODUCER Sexual Orientation Not on file documented as of this encounter Plan of Treatment Not on file documented as of this encounter Procedures Procedure Name Priority Date/Time Associated Diagnosis Comments SCAN - LABS 12/28/2017 12:00 AM CDT documented in this encounter Results * SCAN - LABS (12/28/2017 12:00 AM CDT) Narrative 12/28/2017 12:00 AM CDT Ordered by an unspecified provider. Historical Provider Final Res ult documented in this encounter Visit Diagnoses Not on filedocumented in this encounter Care Teams Computer Meteorologist Relationship Specialty Start Date End Date No, Physician PCP - General 02/12/20 11/04/21 Ivy Jacobson DO [address] [facility] [address] [place], [place] [address] PCP - General Family Medicine 11/05/21 Og Calderon MD [address] [facility] [address] [place], [place] [id number] Consulting Physician Obstetrics and Gynecology 06/18/24 documented as of this encounter
--- OUTSIDE RECORDS SUMMARY | 2025-01-02 15:24 | XMS_ITS | Encounter Summary ---
Author Organization [facility] Address [address] [place] [address] Care Team Providers Care Community Cultural Development Officer Name Role Phone Ivy Jacobson DO Primary Care Provider [phone] Reason for Visit * Reason Onset Date Comments Medication Request 12/02/2022 Encounter Details Date Type Department Care Team (Late st Contact Info) Description 12/02/2022 [employer] Message Enc [facility] Family Medicine - [address], [address] [place] [id number] Ivy Jacobson DO [address] [place] [address] [employer] Social History Tobacco Use Types Packs/Day [...] PM CDT Jacque Peralta RN Active documented as of this encounter Mental Status * Because of a physical, mental, or emotional condition, do you have serious difficulty concentrating, remembering, or making decisions? Answer Entry Date Author Status No 09/11/2019 10:36 PM CDT Jacque Peralta RN Active documented in this encounter Progress Notes * Judy Villasenor - 12/02/2022 10:40 AM CDT Pt calling in to schedule, requested VV, we scheduled for 12/06 documented in this encounter Plan of Treatment Not on file documented as of this encounter Visit Diagnoses Not on filedocumented in this encounter Additional Health Concerns Infection Onset Date Last Indicated Resolved Time COVID-19 Rule Out 03/31/2023 03/31/2023 03/31/2023 10:54 AM CDT COVID-19 Rule Out 03/31/2023 03/31/2023 04/01/2023 3:17 PM CDT COVID-19 Rule Out 05/03/2023 05/03/2023 05/03/2023 1:07 PM SANDER AND POLISHER COVID-19 Rule Out 05/03/2023 05/03/2023 05/04/2023 10:50 PM SANDER AND POLISHER COVID-19 Rule Out 06/02/2023 06/02/2023 06/02/2023 12:07 PM SANDER AND POLISHER COVID-19 Confirmed 06/02/2023 06/02/2023 12:33 AM SANDER AND POLISHER Assessment Noted Time PHQ-9 Depression Total Score: 13 023 2:35 PM SANDER AND POLISHER documented as of this encounter Care Teams Community Cultural Development Officer Relationship Specialty Start Date End Date Ivy Jacobson DO [address] [place] [address] PCP - General FAMILY PRACTICE 04/22/20 documented as of this encounter
[2025-01-02 18:21] LABS: Hematocrit 46.4 % (37.0-47.0); Hemoglobin 14.6 g/dL (12.0-15.0); Immature Granulocyte Percent A 0.2 % (0-0.5); Lymphocytes Absolute Auto 2.89 K/mm3 (0.9-3.2); Mean Corpuscular HGB Conc 31.5 g/dl (32-36); Mean Corpuscular Hemoglobin 28.1 pg (26-34); Mean Corpuscular Volume 89.2 fl (80-100); Nucleated Red Blood Cells Absolute Auto 0.000 K/mm3 (0.0-0.012); Nucleated Red Blood Cells Perc 0.0 % (0.0-0.2); Platelet Count Result 302 k/mm3 (150-375); Red Blood Count 5.20 M/mm3 (4.2-5.4); White Blood Count 9.7 K/mm3 (4.5-10.0)
[2025-01-02 18:33] LABS: Alanine Aminotransferase 19 U/L (6-35); Albumin Level 4.5 g/dL (3.5-5.1); Alkaline Phosphatase 87 U/L (38-126); Anion Gap 7 mmol/L (4-12); Aspartate Amino Transferase 33 U/L (14-36); Bilirubin,Total 0.2 mg/dL (0.2-1.3); Blood Urea Nitrogen 11 mg/dL (7-17); Calcium 9.4 mg/dL (8.4-10.2); Carbon Dioxide 30 mmol/L (22-30); Chloride 102 mmol/L (98-107); Estimated Glomerular Filt Rate > 60; Glucose 106 mg/dL (65-110); Potassium 4.3 mmol/L (3.4-5.0); Sodium 139 mmol/L (137-145); Total Protein 7.7 g/dL (6.3-8.2)
[2025-01-02 19:08] LABS: Thyroid Stimulating Hormone 1.040 uIU/mL (0.465-4.680)
== END 2025-01-02 15:22 | disposition home or self-care (01) ==
LOC: ANHGOSHLAB 15:22
PROVIDERS: PCP Internal Medicine; Visit Provider Nurse Practitioner
DX: E55.9 Vitamin D deficiency, unspecified (principal); G47.19 Other hypersomnia
CPT/HCPCS: 36415; 80053; 82306; 84443; 85025

== ENCOUNTER 2025-01-29 08:52 | Outpatient (CLI) | payer OTHER, SELFPAY ==
--- OUTSIDE RECORDS SUMMARY | 2025-01-29 09:13 | XMS_ITS | Clinical Summary ---
Author Organization [facility] Address [address] [facility] [place] [address] Care Team Providers Care Nurses' Association Counselor Name Role Phone Rashmi Bajwa MD Unavailable [phone] Source Comments [facility] [employer],non-owned Affiliates and Associated Physician Practices is amultiple site organization consisting of ambulatory clinics and hospital sitesin [place], [place], [place] and [place]. This disclosure is being madepursuant to the Care Everywhere program and may not contain all information available regarding this patient. Last updated 18.[facility] [employer] Allergies No known active allergies Medications * [...] on file Legal Sex Female 5:35 AM FILLING MACHINE SET UP MECHANIC Gender Identity Not on file Sexual Orientation Not on file Last Filed Vital Signs Vital Sign Reading Time Taken Comments Blood Pressure 109/68 06/02/2014 8:10 PM FILLING MACHINE SET UP MECHANIC Pulse 92 06/02/2014 8:10 PM FILLING MACHINE SET UP MECHANIC Temperature 37.2 C (99 F) 06/02/2014 2:14 PM FILLING MACHINE SET UP MECHANIC Respiratory Rate 16 06/02/2014 8:10 PM FILLING MACHINE SET UP MECHANIC Oxygen Saturation 100% 06/02/2014 8:10 PM FILLING MACHINE SET UP MECHANIC Inhaled Oxygen Concentration - - Weight 63.5 kg (140 lb) 06/02/2014 2:12 PM FILLING MACHINE SET UP MECHANIC Height 167.6 cm (5' 6) 06/02/2014 2:12 PM FILLING MACHINE SET UP MECHANIC Body Mass Index 22.6 06/02/2014 2:12 PM FILLING MACHINE SET UP MECHANIC Plan of Treatment Health Maintenance Due Date [...] patient's age to complete this topic Insurance [place] [address] CARE MEDICAID [place] [address] [place] [address] Care Teams Nurses' Association Counselor Relationship Specialty Start Date End Date Rashmi Bajwa MD Orthopedic Surgery 08/08/12
--- OUTSIDE RECORDS SUMMARY | 2025-01-29 09:13 | XMS_ITS | Encounter Summary ---
Author Organization [facility] Facility Care Team Providers Care Co Supervisor Grounds And Landscape Name Role Phone No, Physician Primary Care Provider [phone] Ivy Jacobson DO Primary Care Provider [phone] Og Calderon MD Unavailable Encounter Details Date Type Department Care Team (Latest Contact Info) Description 12/26/2017 Orders Only [facility] CLINCONV Provider, MD Dre [address] [place] [address] Social History Tobacco Use Types Packs/Day Years Used Date Smoking Tobacco: Never Assessed Comments Unknown Sex and Gender Information Value Date Recorded Sex Assigned at Not on file Legal Sex Female 8:57 PM SUPPORT CLERK Gender Identity Female 06/08/2024 6:31 PM SUPPORT CLERK Sexual Orientation Not on file documented as [...] on filedocumented in this encounter Care Teams Co Supervisor Grounds And Landscape Relationship Specialty Start Date End Date No, Physician PCP - General 02/12/20 11/04/21 Ivy Jacobson DO [address] [facility] [address] [place], [place] [address] PCP - General Family Medicine 11/05/21 Og Calderon MD [address] [facility] [address] [place], [place] [id number] Consulting Physician Obstetrics and Gynecology 06/18/24 documented as of this encounter
--- OUTSIDE RECORDS SUMMARY | 2025-01-29 09:13 | XMS_ITS | Clinical Summary ---
Author Organization [facility] at the Medical Office Building Address [address] [place] [address] Care Team Providers Care Spa Director Name Role Phone Ivy Jacobson DO Primary Care Provider [phone] Og Calderon MD Unavailable [phone] Allergies Active Allergy Reactions Criticality Noted Date [...] more drinks on one occasion? Never 06/18/2024 [place] Depression Scale Answer Date Recorded [place] Depression Scale Total 3 12/22/2021 The thought [...] on file Legal Sex Female 8:57 PM SHINGLE SAWYER Gender Identity Female 06/08/2024 6:31 PM SHINGLE SAWYER Sexual Orientation Not on file Obstetrics History [...] Pro sloan in Second Stage, Intolerance Delivery Location:[facility]) SAB 2021 Term 39w 1d 0h 03m 0h 03m 3.81 kg (8 lb 6.4 oz) M CS-LT ranv Spinal N Livin g 6 7 HORTENCIA DE LA GARZA, Adam Stringer MD Complications:None Delivery Location:[facility] ampus (MHE L AND D PROCEDURE) Last Filed Vital Signs Vital Sign Reading Time Taken Comments Blood Pressure 130/84 06/18/2024 11:35 AM SHINGLE SAWYER Pulse 88 06/18/2024 11:35 AM SHINGLE SAWYER Temperature 37 C (98.6 F) 06/18/2024 11:05 AM SHINGLE SAWYER Respiratory Rate 16 06/18/2024 11:35 AM SHINGLE SAWYER Oxygen Saturation 98% 06/18/2024 11:35 AM SHINGLE SAWYER Inhaled Oxygen Concentration - - Weight 90 kg (198 lb 8 oz) 06/18/2024 7:05 AM CS T Height 167.6 cm (5' 6) 06/18/2024 7:05 AM SHINGLE SAWYER Body Mass Index 32.04 06/18/2024 7:05 AM SHINGLE SAWYER Plan of Treatment Health Maintenance Due Date Last Done Comments Varicella Vaccines (1 of 2 - 13+ 2-dose series) 2003 Hepatitis B Screening 02/04/2008 HPV Vaccines (1 - 3-dose SCD M series) 2017 Cervical Cancer Screening 04/13/2022 04/13/2021 Depression Screening 12/22/2022 12/22/2021 Influenza Vaccine (#1) 2025 0, 05/02/2013 Regular Well Visit/Exam 18-64 04/11/2025 04/11/2024 DTaP/Tdap/Td Vaccine (4 - Td or Tdap) 08/27/2031 08/26/2021, 06/13/2008, 06/13/2004 Hepatitis C Screening Completed 03/26/2021 Pneumococcal vaccine <65 Aged Out No longer [...] AM CDT Narrative 04/17/2021 10:16 AM CDT [facility] Department of Pathology [address] [place] [address] Final Report with Addendum Note to Patients: [...] the details. Patient Name: ALF CHAUHAN Address: [address] [place] [address] Gender: F : 1990 (Age: 31) Service: Laboratory Location: [facility] #: [id number] Patient Type: [facility] SPECIMEN Taken: 04/13/2021 Received: 04/14/2021 Accessioned:: 04/15/2021 Reported: 04/17/2021 Physician(s): Dr. Nomi Raymond M.D. [facility] Diagnosis: Source of Specimen: Imaged Thinprep Pap Test plus HPV - Physical Therapy Manager Cytologic Material Specimen Adequacy: - Satisfactory for [...] Imaged Thinprep Pap Test plus HPV - Physical Therapy Manager Cytologic Material Clinical History: The Pap test [...] determined by the Surgical Pathology Department at [facility] as part of an ongoing supervisor type disk quality control program and in compliance with federally mandated [...] characteristics determined by the Surgical Pathology Department [facility]. It has not been cleared or [...] GENERAL ORDERABLES Final Result Performing Organization Address City/State/[facility] Co de Phone Number FRANK [phone] [facility] Department [place] [address] from Last 3 Months or Most Recently Relevant to Health Maintenance Insurance [facility] H[facility]/PPO Address: [facility] [address] [place] [address] [facility] H[facility]/PPO Address: [address] [place] [address] [facility]/PPO Address: [address] [place] [address] Advance Directives For more information, please contact: [phone] * Full Code (Latest Code Status on File) Date Activated Date Inactivated Comments 11/05/2021 9:07 AM 11/08/2021 10:01 PM * Full Code Date Activated Date Inactivated Comments 11/05/2021 5:42 AM 11/05/2021 9:07 AM Full CPR in case of cardiopulmonary arrest * Full Code Date Activated Date Inactivated Comments 08/27/2021 2:31 AM 08/28/2021 2:21 PM Full CPR in case of cardiopulmonary arrest Care Teams Spa Director Relationship Specialty Start Date End Date Ivy Jacobson DO [address] [facility] [address] [place] [address] PCP - General Family Medicine 11/05/21 Og Calderon MD [address] [address] Consulting Physician Obstetrics and Gynecology 06/18/24
[2025-02-18 14:47] VITALS: BMI 33.4
--- NOTE | 2025-02-18 14:47 | P.SLEEP_ITS ---
Sleep Study - Home Unattended Date of Study: 01/29/25 Ordering Provider: Machelle Iverson NP Interpreting Provider: Keren Lei, DO Home Sleep Study Type: Watch PAT Height: 1.68 m Weight: 93.894 kg Body Mass Index: 33.4 Neck Circumference (inches): 14 [place]: 5 Reason for Sleep Study Trouble falling and staying asleep Sleep History The patient is a 35-year-old female that had a sleep study ordered for evalua tion of sleep apnea. She admits to excessive daytime sleepiness, trouble falling asleep and trouble staying asleep. She denies snoring loudly. She does have interruptions in breathing while asleep. She denies choking or gasping at night. She denies having trouble breathing on her back. She denies morning headaches. She does have a dry or sore mouth / throat. She denies nocturnal heartburn. She denies nocturia. She does have difficulty returning to sleep if she wakes up throughout the night. She does use hypnotics or sedatives. She denies feeling anxious about sleep. She does feel tired or sleepy during the day. She does feel tired in the morning. She does have the urge to fall asleep during the day. She does feel drowsy while driving. She denies sleep paralysis, cataplexy and hypnagogic/ hypnopompic hallucinations. She does clench or grind her teeth. She denies kicking or jerking her legs excessively. She does have a restless feeling in her legs it does cause an urge to move her legs. The restless feeling does not get worse with rest but it does improve with activity. It occurs at nighttime and it does cause a disturbance in her sleep. She goes to bed at 10:00 p.m. every night. It takes her 1 hour to fall asleep. She gets 6 hours of sleep per night. Her sleep is not restorative on her days off. She does take a planned naps in the afternoon that lasts 1-2 hours. She denies dream enactment behavior. She denies sleep walking. She consumes 1-2 cups of caffeinated beverage per day. She has 1 alcoholic beverage 1-2 nights per week. She denies tobacco use. She does exercise 3-4 nights per week. [facility] Past Medical History Medical History Migraine Basal cell carcinoma of skin Anxiety Abdominal pain Family History Family History Mother Asthma Depression Hypertension Heart disease Anxiety Thyroid disorder Sibling Anxiety Depression Asthma Grandparent Anxiety Depression Thyroid disorder Social History Social History Smoking status: Never smoker Alcohol intake: current Alcohol use details: rarely Substance use type: does not use Lack of Transportation: No Lack of Food: Never True Current Housing: I Have Housing Concerned About Future Housing: No Difficulty Paying Gas/Electric Bills: No Difficulty Paying for Meds: No Currently Unemployed: YES Education: Master's Degree or Higher Difficulty w/ Childcare or Family Care: No Medications Home Medications ?Medication ?Instructions ?Recorded ?Confirmed ?Type rizatriptan 10 mg disintegrating 10 mg translingual BI D PRN 08/20/24 01/02/25 Rx tablet migraine headache #30 tabs bupropion HCl 300 mg 24 hr tablet, 300 mg PO DAILY #90 tabs 08/21/24 01/02/25 Rx extended release escitalopram oxalate 20 mg tablet 20 mg PO DAILY #30 t abs 11/19/24 01/02/25 Rx Sleep Procedure The sleep study was completed using [employer] a technically adequate device with seven channels: peripheral arterial tone, actigraphy, body position, snore, respiratory movement, pulse oximetry, sleep staging, and heart rate. Prior to using the device, the patient received verbal and written instructions for its application and was provided with the help desk phone number for additional telephonic instruction with 24-hour availability of qualified personnel to answer questions. The study was scored using CMS guidelines. Sleep Architecture The total recording time is 6 hrs, 5 min. The total sleep time is 4 hrs, 14 min. Sleep latency is 17 minutes. REM latency is 78 minutes. The patient had 8 episodes of waking. Sleep architecture shows 11.0% deep sleep, 57.6% light sleep, and (as % Total Sleep Time) showed NREM (Light 57.6%; Deep 11.0%), and a 31.4% stage REM. The patient spent 57.2% of total sleep time in the supine position. Sleep efficiency was 69.59. Respiratory Analysis The overall AHI (pAHI 4%:) is 14.6. The overall AHI (pAHI 3%:) is 20.8. The central AHI is 1.4. The AHI was 17.8 in NREM and 27.3 in REM sleep. The AHI was 15.0 in Supine and 28.6 in Non-supine sleep. Percent of Ismael Bello respirations is 0.0. Oximetry Data The oxygen desaturation index (NBAEEL 4%:) is 8.8. The mean saturation is 96%, and the lowest saturation is 91%. Time spent with saturation < 88% is 0.0 minutes. Snoring Profile Snoring average intensity is 43 dB. The patient snored above 45 decibels for 53.9 minutes, 21.2% of sleep time. Cardiac Profile The average pulse rate is 74 beats per minutes. The lowest pulse rate is 53 bpm. The highest pulse rate reported is 120 bpm. Atrial fibrillation was not det ected. Premature beats occur 0.1 per minute. Assessment and Plan Assessment and Plan (1) AMANDA (obstructive sleep apnea): Code(s): G47.33 - Obstructive sleep apnea (adult) (pediatric) Status: Acute Assessment and Plan: The patient had an overall AHI of 14.6 with desaturation down to 91%. This is consistent with mild sleep apnea. Due to the patient's anxiety, she qualifies for treatment. I recommend that the patient be prescribed AutoPAP 5-15 cm H2O, CPAP mask/filters/tubing and heated humidity. A mandibular advancement device is also an acceptable treatment option. This should be used with all episodes of sleep.? Compliance should be reviewed within 31-90 days of starting therapy for usage greater than 4 hours per night greater than 70% of the nights. The patient should be asked about symptoms such as?excessive daytime sleepiness, quality of sleep, decreased nocturia, increased?mental functioning such as memory, mood, and concentration. Data The data obtained during this sleep study is adequate for interpretation. Certification This sleep study has been reviewed by a board certified sleep medicine physician.
== END 2025-01-30 09:09 | disposition home or self-care (01) ==
PROVIDERS: PCP Internal Medicine; Visit Provider Nurse Practitioner
DX: G47.33 Obstructive sleep apnea (adult) (pediatric) (principal); G47.19 Other hypersomnia
CPT/HCPCS: 95800